=== PATIENT | female | born 1975 | race Hispanic/Latino ===

== ENCOUNTER 2016-11-30 23:01 | Emergency (ER) | payer SELFPAY ==
[2016-11-30 23:20] VITALS: BP 128/71; PULSE 81; RESP 16; TEMP 98; O2SAT 98
[2016-11-30] MEDS ORDERED: Albuterol-Ipratrop 3 mg / 0.5 (3 ml) UD INH STA (23:31)
[2016-11-30] MEDS ORDERED: Promethazine/Cod 6.25mg-10mg/5ml Syr UD PO STA (23:35)
[2016-11-30] MEDS ORDERED: Promethazine/Cod 6.25mg-10mg/5ml Syr UD ONE (23:38)
--- NOTE | 2016-12-01 | ED PDOC ---
HPI: CCC, URI, Sore Throat Time Seen by Provider: 11/30/16 23:27 Chief Complaint (Nursing): Cough, Cold, Congestion Past Medical History Vital Signs: Last Vital Signs Temp 98.0 F 11/30/16 23:17 Pulse 81 11/30/16 23:17 Resp 16 11/30/16 23:17 BP 128/71 11/30/16 23:17 Pulse Ox 98 11/30/16 23:17 - Home Medications Home Medications: Ambulatory Orders Medication Instructions Recorded Albuterol 0.083% [Albuterol 0.083% 2.5 mg IH QID PRN #20 11/30/16 Inhal Sunita (2.5 mg/3 ml) UD] Albuterol HFA [Ventolin HFA 90 1 puff IH BID PRN #1 unit 11/30/16 mcg/actuation (8 g)] Promethazine HCl/Codeine 10 ml PO Q8H PRN #150 ml 11/30/16 [Prometh-Codein 6.25-10 mg/5 ml] predniSONE [predniSONE Tab] 20 mg PO DAILY #12 tab 11/30/16 - Allergies Allergies/Adverse Reactions: Allergies Allergy/AdvReac Type Severity Reaction Status Date / Time No Known Allergies Allergy Verified 11/30/16 23:20 - ECG O2 Sat by Pulse Oximetry: 98 Disposition - Clinical Impression Clinical Impression: Viral illness, Reactive airway disease - Patient ED Disposition Is Patient to be Admitted: No Counseled Patient/Family Regarding: Diagnosis, Need For Followup, Rx Given - Disposition Disposition: Routine/Home Disposition Time: 23:58 Condition: GOOD Prescriptions: Albuterol 0.083% [Albuterol 0.083% Inhal Sunita (2.5 mg/3 ml) UD] 2.5 mg IH QID PRN #20 PRN Reason: Shortness Of Breath Promethazine HCl/Codeine [Prometh-Codein 6.25-10 mg/5 ml] 10 ml PO Q8H PRN #150 ml PRN Reason: Cough Albuterol HFA [Ventolin HFA 90 mcg/actuation (8 g)] 1 puff IH BID PRN #1 unit PRN Reason: Shortness Of Breath predniSONE [predniSONE Tab] 20 mg PO DAILY #12 tab Instructions: Reactive Airways Disease (ED)
== END 2016-12-01 00:16 | disposition home or self-care (01) ==
LOC: H.ER 23:01
DX: J45.909 Unspecified asthma, uncomplicated (principal)

== ENCOUNTER 2018-04-14 15:17 | Emergency (ER) | payer SELFPAY ==
[2018-04-14 15:28] VITALS: TEMP 98.3
[2018-04-14 15:38] VITALS: RESP 18
[2018-04-14] MEDS ORDERED: Albuterol-Ipratrop 3 mg / 0.5 (3 ml) UD INH STA (16:02)
--- NOTE | 2018-04-14 16:18 | ED PDOC ---
HPI: SOB/CHF/COPD Time Seen by Provider: 04/14/18 15:36 Chief Complaint (Nursing): Shortness Of Breath Chief Complaint (Provider): Cough and Asthma History Per: Patient History/Exam Limitations: no limitations Onset/Duration Of Symptoms: Hrs (x6) Current Symptoms Are (Timing): Still Present Additional Complaint(s): 42 year old female, with a past medical history of asthma, presents to the ED complaining of cough and asthma. Patient reports having chest tightness and dry cough for the last 6 hours consistent with previous episodes of asthma attack. She tried to ignore symptoms but there was no improvement. She states her albuterol pump does not work. PMD: Piotr Samayoa Past Medical History Reviewed: Historical Data, Nursing Documentation, Vital Signs Vital Signs: Last Vital Signs Temp 98.3 F 04/14/18 15:24 Pulse 91 H 04/14/18 16:26 Resp 18 04/14/18 15:35 BP 128/80 04/14/18 15:24 Pulse Ox 96 04/14/18 16:26 - Medical History PMH: Asthma - Family History Family History: States: Unknown Family Hx - Social History Current smoker - smoking cessation education provided: Yes Alcohol: Social Drugs: Denies - Home Medications Home Medications: Ambulatory Orders Medication Instructions Recorded Albuterol 0.083% [Albuterol 0.083% 2.5 mg IH QID PRN #20 11/30/16 Inhal Sunita (2.5 mg/3 ml) UD] Albuterol HFA [Ventolin HFA 90 1 puff IH BID PRN #1 unit 11/30/16 mcg/actuation (8 g)] Promethazine HCl/Codeine 10 ml PO Q8H PRN #150 ml 11/30/16 [Prometh-Codein 6.25-10 mg/5 ml] predniSONE [predniSONE Tab] 20 mg PO DAILY #12 tab 11/30/16 Albuterol 0.083% [Albuterol 3 ml IH Q4 PRN #50 neb 04/14/18 Sulfate 3 Ml] Albuterol HFA [Ventolin HFA 90 2 puff IH Q4H PRN #1 inh 04/14/18 mcg/actuation (8 g)] Nebulizer [Aeroneb Go Nebuliser] 1 each INH PRN PRN #1 each 04/14/18 - Allergies Allergies/Adverse Reactions: Allergies Allergy/AdvReac Type Severity Reaction Status Date / Time No Known Allergies Allergy Verified 04/14/18 15:23 Review of Systems ROS Statement: Except As Marked, All Systems Reviewed And Found Negative (as per HPI) Cardiovascular: Positive for: Chest Pain, Other (Chest tightness) Respiratory: Positive for: Cough Physical Exam - Reviewed Nursing Documentation Reviewed: Yes Vital Signs Reviewed: Yes - Physical Exam Appears: Positive for: Non-toxic, No Acute Distress Head Exam: Positive for: ATRAUMATIC, NORMOCEPHALIC Skin: Positive for: Warm, Dry Eye Exam: Positive for: EOMI, PERRL ENT: Positive for: Pharynx Is (erythematous), Other (Petechiae on posterior soft palate). Negative for: Tonsillar Exudate, Tonsillar Swelling Neck: Positive for: Painless ROM, Supple Cardiovascular/Chest: Positive for: Regular Rate, Rhythm. Negative for: Murmur Respiratory: Positive for: Respiratory Distress (mild), Other (Clear to auscultation bilaterally). Negative for: Rales, Rhonchi, Wheezing Gastrointestinal/Abdominal: Positive for: Soft. Negative for: Tenderness Back: Positive for: Normal Inspection. Negative for: Decreased ROM Extremity: Positive for: Normal ROM. Negative for: Pedal Edema Lymphatic: Negative for: Adenopathy Neurologic/Psych: Positive for: Alert. Negative for: Motor/Sensory Deficits - ECG ECG Rhythm: Positive for: Sinus Rhythm. Negative for: Normal QRS (narrow), ST/ T Changes Interpretation Of ECG: Poor R wave progression Rate: 91 O2 Sat by Pulse Oximetry: 96 (RA) Pulse Ox Interpretation: Normal Medical Decision Making Medical Decision Making: Initial Impression: Chest tightness, asthma exacerbation Differentials include but not limited to bronchitis. Initial Plan: Albuterol 6mL INH Peak flow 450p Pt reports feeling better. Stable for dc. Scribe Attestation: Documented by Bean Kincaid acting as a scribe for Arleth Sanderson MD. Provider Scribe Attestation: All medical record entries made by the Scribe were at my direction and personally dictated by me. I have reviewed the chart and agree that the record accurately reflects my personal performance of the history, physical exam, medical decision making, and the department course for this patient. I have also personally directed, reviewed, and agree with the discharge instructions and disposition. Disposition - Clinical Impression Clinical Impression: Asthma exacerbation Counseled Patient/Family Regarding: Studies Performed, Diagnosis, Need For Followup, Rx Given, Smoking Cessation - Disposition Referrals: [facility] [place] [Outside] (FOLLOW UP NEXT WEEK FOR REEVALUATION) Disposition: Routine/Home Disposition Time: 16:45 Condition: IMPROVED Prescriptions: Albuterol 0.083% [Albuterol Sulfate 3 Ml] 3 ml IH Q4 PRN #50 neb PRN Reason: asthma Albuterol HFA [Ventolin HFA 90 mcg/actuation (8 g)] 2 puff IH Q4H PRN #1 inh PRN Reason: ASTHMA Nebulizer [Aeroneb Go Nebuliser] 1 each INH PRN PRN #1 each PRN Reason: asthma Instructions: Asthma, Adult (DC), Quitting Smoking Forms: [facility] ED School/Work Excuse
[2018-04-14 17:11] VITALS: BP 126/77; PULSE 85; O2SAT 97
== END 2018-04-14 17:05 | disposition home or self-care (01) ==
LOC: H.ER 15:17
DX: J45.901 Unspecified asthma with (acute) exacerbation (principal); F17.200 Nicotine dependence, unspecified, uncomplicated; J44.9 Chronic obstructive pulmonary disease, unspecified

== ENCOUNTER 2018-04-21 13:45 | Emergency (ER) | payer SELFPAY ==
[2018-04-21 13:57] VITALS: BP 124/74; PULSE 76; TEMP 98.4; O2SAT 100
[2018-04-21] MEDS ORDERED: Albuterol-Ipratrop 3 mg / 0.5 (3 ml) UD INH STA (14:18)
[2018-04-21] MEDS ORDERED: methylPREDNISolone 125 MG in Sodium Chloride 0.9% 50 ML IV STA (14:18)
[2018-04-21 14:22] VITALS: RESP 16
[2018-04-21] MEDS ORDERED: Albuterol-Ipratrop 3 mg / 0.5 (3 ml) UD ONE (14:26)
--- NOTE | 2018-04-21 15:07 | ED PDOC ---
HPI: SOB/CHF/COPD Time Seen by Provider: 04/21/18 14:08 Chief Complaint (Nursing): Shortness Of Breath Chief Complaint (Provider): Shortness of breath History Per: Patient History/Exam Limitations: no limitations Onset/Duration Of Symptoms: Hrs (today) Current Symptoms Are (Timing): Still Present Initiating Event: Upper Respiratory Illness Associated Symptoms: Productive Cough. denies: Fever, Chills, Chest Pain, Ankle /Leg Swelling Additional Complaint(s): Neris Melendez is a 42 year old female, with a past medical history of asthma , who presents to the emergency department complaining of cough and shortness of breath onset since this morning stating it's an acute asthma exacerbation. Patient was seen x1 week ago for the same symptoms which had resolved but came back this morning. Patient denies previous hospitalizations for asthma or intubations. She denies any fever, chills, nausea, vomit, diarrhea, leg swelling , calf pain, chest pain or other illnesses. No further medical complaints. PMD: None provided. Past Medical History Reviewed: Historical Data, Nursing Documentation, Vital Signs Vital Signs: Last Vital Signs Temp 98.4 F 04/21/18 13:55 Pulse 76 04/21/18 13:55 Resp 16 04/21/18 14:20 BP 124/74 04/21/18 13:55 Pulse Ox 100 04/21/18 15:45 - Medical History PMH: Asthma - Surgical History Surgical History: No Surg Hx - Family History Family History: States: Unknown Family Hx - Social History Current smoker - smoking cessation education provided: Yes (Current some days smoker) Alcohol: Social Drugs: Denies - Home Medications Home Medications: Ambulatory Orders Medication Instructions Recorded Albuterol 0.083% [Albuterol 0.083% 2.5 mg IH QID PRN #20 11/30/16 Inhal Sunita (2.5 mg/3 ml) UD] Albuterol HFA [Ventolin HFA 90 1 puff IH BID PRN #1 unit 11/30/16 mcg/actuation (8 g)] Promethazine HCl/Codeine 10 ml PO Q8H PRN #150 ml 11/30/16 [Prometh-Codein 6.25-10 mg/5 ml] predniSONE [predniSONE Tab] 20 mg PO DAILY #12 tab 11/30/16 Albuterol 0.083% [Albuterol 3 ml IH Q4 PRN #50 neb 04/14/18 Sulfate 3 Ml] Albuterol HFA [Ventolin HFA 90 2 puff IH Q4H PRN #1 inh 04/14/18 mcg/actuation (8 g)] Nebulizer [Aeroneb Go Nebuliser] 1 each INH PRN PRN #1 each 04/14/18 Albuterol HFA [Ventolin HFA 90 2 puff IH [id number] #1 inhaler 04/21/18 mcg/actuation (8 g)] Prednisone [Deltasone] 40 mg PO DAILY #8 tablet 04/21/18 - Allergies Allergies/Adverse Reactions: Allergies Allergy/AdvReac Type Severity Reaction Status Date / Time No Known Allergies Allergy Verified 04/21/18 13:55 Review of Systems ROS Statement: Except As Marked, All Systems Reviewed And Found Negative Constitutional: Negative for: Fever, Chills Cardiovascular: Negative for: Chest Pain, Edema Respiratory: Positive for: Cough, Shortness of Breath Gastrointestinal: Negative for: Nausea, Vomiting, Diarrhea Musculoskeletal: Negative for: Leg Pain (calf pain) Physical Exam - Reviewed Nursing Documentation Reviewed: Yes Vital Signs Reviewed: Yes - Physical Exam Appears: Positive for: No Acute Distress Head Exam: Positive for: ATRAUMATIC, NORMAL INSPECTION, NORMOCEPHALIC Skin: Positive for: Normal Color, Warm, Dry Eye Exam: Positive for: Normal appearance, EOMI, PERRL Neck: Positive for: Painless ROM, Supple Cardiovascular/Chest: Positive for: Regular Rate, Rhythm. Negative for: Murmur Respiratory: Positive for: Normal Breath Sounds, Wheezing (decreased air entry with faint expiratory wheeze), Other. Negative for: Respiratory Distress Gastrointestinal/Abdominal: Positive for: Normal Exam, Soft. Negative for: Tenderness Back: Positive for: Normal Inspection. Negative for: L CVA Tenderness, R CVA Tenderness Extremity: Positive for: Normal ROM (upper and lower extremities). Negative for : Calf Tenderness, Deformity, Swelling Neurologic/Psych: Positive for: Alert, Oriented. Negative for: Motor/Sensory Deficits - ECG O2 Sat by Pulse Oximetry: 100 (RA) Pulse Ox Interpretation: Normal Medical Decision Making Medical Decision Making: Time: 14:08 Initial Impression: Asthma exacerbation. Possible x-rays and labs if symptoms not resolved with treatment and reevaluate patient. Initial Plan: --Kevinb 3 ml INH --SOLU-medrol 125 mg IV --Reevaluation 15:40 -Patient states asthma resolved. Patient is medically stable for discharge home. Pt. is requesting note for work and prescription for albuterol and Prednisone. ----- Scribe Attestation: Documented by Memo Loene, acting as a scribe for Estella Conley MD. Provider Scribe Attestation: All medical record entries made by the Scribe were at my direction and personally dictated by me. I have reviewed the chart and agree that the record accurately reflects my personal performance of the history, physical exam, medical decision making, and the department course for this patient. I have also personally directed, reviewed, and agree with the discharge instructions and disposition. Disposition - Clinical Impression Clinical Impression: Asthma exacerbation - Disposition Disposition: Routine/Home Disposition Time: 15:40 Condition: IMPROVED Additional Instructions: Take albuterol as needed. Take Prednisone starting tomorrow and for a total of four days. Return to the emergency department if symptoms worsen. Follow up with primary medical doctor for routine asthma management. Prescriptions: Albuterol HFA [Ventolin HFA 90 mcg/actuation (8 g)] 2 puff IH [id number] #1 inhaler Prednisone [Deltasone] 40 mg PO DAILY #8 tablet Instructions: Asthma, Adult (DC), Asthma Action Plan, Peak Flow Meter Forms: [employer] ([place]), [facility] ED School/Work Excuse
== END 2018-04-21 16:00 | disposition home or self-care (01) ==
LOC: H.ER 13:45
DX: J45.901 Unspecified asthma with (acute) exacerbation (principal); F17.200 Nicotine dependence, unspecified, uncomplicated
CPT/HCPCS: 94150; 94640; 99283; J2930

== ENCOUNTER 2018-05-15 21:34 | Emergency (ER) | payer SELFPAY ==
[2018-05-15 21:43] VITALS: RESP 18
[2018-05-15] MEDS ORDERED: Albuterol-Ipratrop 3 mg / 0.5 (3 ml) UD IH STA (22:05)
--- NOTE | 2018-05-15 22:13 | ED PDOC ---
HPI: CCC, URI, Sore Throat Time Seen by Provider: 05/15/18 22:00 Chief Complaint (Nursing): Respiratory Distress Chief Complaint (Provider): cough History Per: Patient History/Exam Limitations: no limitations Onset/Duration Of Symptoms: Days (1 month), Waxing/Waning Current Symptoms Are (Timing): Still Present Associated Symptoms: Cough Additional Complaint(s): 43 y/o female presents for evaluation of persistent cough x 1 month. Patient reports associated chest tightness. Denies fever, nasal congestion/discharge, vomiting, shortness of breath, palpitations, leg pain/swelling, recent travel. Patient states she has been seen here multiple times for same but symptoms always return; has not yet followed up with her primary doctor PMD: Dr. Piotr Mejia Past Medical History Reviewed: Historical Data, Nursing Documentation, Vital Signs Vital Signs: Last Vital Signs Temp 98.8 F 05/15/18 21:39 Pulse 86 05/15/18 21:39 Resp 18 05/15/18 22:10 BP 118/78 05/15/18 21:39 Pulse Ox 98 05/15/18 23:03 - Medical History PMH: Asthma - Surgical History Surgical History: No Surg Hx - Family History Family History: States: Unknown Family Hx - Living Arrangements Living Arrangements: With Family - Social History Current smoker - smoking cessation education provided: Yes Alcohol: None - Home Medications Home Medications: Ambulatory Orders Medication Instructions Recorded Albuterol 0.083% [Albuterol 0.083% 2.5 mg IH QID PRN #20 11/30/16 Inhal Sunita (2.5 mg/3 ml) UD] Albuterol HFA [Ventolin HFA 90 1 puff IH BID PRN #1 unit 11/30/16 mcg/actuation (8 g)] Promethazine HCl/Codeine 10 ml PO Q8H PRN #150 ml 11/30/16 [Prometh-Codein 6.25-10 mg/5 ml] predniSONE [predniSONE Tab] 20 mg PO DAILY #12 tab 11/30/16 Albuterol 0.083% [Albuterol 3 ml IH Q4 PRN #50 neb 04/14/18 Sulfate 3 Ml] Albuterol HFA [Ventolin HFA 90 2 puff IH Q4H PRN #1 inh 04/14/18 mcg/actuation (8 g)] Nebulizer [Aeroneb Go Nebuliser] 1 each INH PRN PRN #1 each 04/14/18 Albuterol HFA [Ventolin HFA 90 2 puff IH [id number] #1 inhaler 04/21/18 mcg/actuation (8 g)] Prednisone [Deltasone] 40 mg PO DAILY #8 tablet 04/21/18 Promethazine HCl/Codeine 5 ml PO Q8 PRN #75 ml 05/15/18 [Prometh-Codein 6.25-10 mg/5 ml] predniSONE [Prednisone] 60 mg PO DAILY #12 tab 05/15/18 - Allergies Allergies/Adverse Reactions: Allergies Allergy/AdvReac Type Severity Reaction Status Date / Time No Known Allergies Allergy Verified 05/15/18 21:38 Review of Systems ROS Statement: Except As Marked, All Systems Reviewed And Found Negative Cardiovascular: Positive for: Chest Pain Respiratory: Positive for: Cough Physical Exam - Reviewed Nursing Documentation Reviewed: Yes Vital Signs Reviewed: Yes - Physical Exam Appears: Positive for: Well, Non-toxic, No Acute Distress Head Exam: Positive for: ATRAUMATIC, NORMAL INSPECTION, NORMOCEPHALIC Skin: Positive for: Normal Color Eye Exam: Positive for: Normal appearance ENT: Positive for: Normal ENT Inspection Cardiovascular/Chest: Positive for: Regular Rate, Rhythm Respiratory: Positive for: Wheezing (mild expiratory wheezing) Gastrointestinal/Abdominal: Positive for: Normal Exam Back: Positive for: Normal Inspection Extremity: Positive for: Normal ROM Neurologic/Psych: Positive for: Alert, Oriented (x3) - Laboratory Results Result Diagrams: 05/15/18 22:15 05/15/18 22:15 - ECG ECG: Positive for: Viewed By Me (reviewed by ED attending) ECG Rhythm: Positive for: Sinus Rhythm O2 Sat by Pulse Oximetry: 98 - Radiology X-Ray: Viewed By Me X-Ray Interpretation: No Acute Disease - Progress ED Course And Treament: labs, ekg, chest xray On re-eval, patient states she is feeling better Patient educated on findings, discharged with rx Prednisone, Promethazine with codeine Advised follow up PMD 2-3 days Return precautions given Disposition - Clinical Impression Clinical Impression: Asthmatic bronchitis - Patient ED Disposition Is Patient to be Admitted: No Counseled Patient/Family Regarding: Studies Performed, Diagnosis, Need For Followup, Rx Given - Disposition Referrals: Piotr Mejia MD [Staff Provider] - Disposition: Routine/Home Disposition Time: 23:03 Condition: IMPROVED Prescriptions: predniSONE [Prednisone] 60 mg PO DAILY #12 tab Promethazine HCl/Codeine [Prometh-Codein 6.25-10 mg/5 ml] 5 ml PO Q8 PRN #75 ml PRN Reason: Cough Instructions: Acute Bronchitis, Asthma in Adults Forms: [facility] (Nepalese)
[2018-05-15] MEDS ORDERED: Albuterol-Ipratrop 3 mg / 0.5 (3 ml) UD ONE (22:18)
[2018-05-15 22:32] LABS: BASO # 0.1 K/uL (0.0-0.2); BASO % 0.7 % (0.0-2.0); EOS # 0.6 K/uL (0.0-0.7); EOS % 7.8 % (0.0-4.0); LYMPH # 1.8 K/uL (1.0-4.3); LYMPH % 24.1 % (20.0-40.0); MEAN CELL VOLUME 92.9 fl (81.0-99.0); MEAN CORPUSCULAR HEMOGLOBIN 31.9 pg (27.0-31.0); MEAN CORPUSCULAR HGB CONC 34.3 g/dL (33.0-37.0); MEAN PLATELET VOLUME 7.3 fl (7.2-11.7); MONO # 0.6 K/uL (0.0-0.8); MONO % 8.1 % (0.0-10.0); NEUT # 4.4 K/uL (1.8-7.0); NEUT % 59.3 % (50.0-75.0); RBC 4.4 Mil/uL (3.80-5.20); RED CELL DISTRIBUTION WIDTH 13.3 % (11.5-14.5); WHITE BLOOD COUNT 7.5 K/uL (4.8-10.8)
[2018-05-15 22:42] LABS: ALB/GLOB RATIO 1.2 (1.0-2.1); ALBUMIN 3.9 g/dL (3.5-5.0); ALT/SGPT 31 U/L (9-52); AST/SGOT 21 U/L (14-36); BLOOD UREA NITROGEN 13 mg/dl (7-17); CALCIUM 9.7 mg/dL (8.4-10.2); GFR NON-AFRICAN AMERICAN > 60
[2018-05-15 23:29] VITALS: BP 124/79; PULSE 80; TEMP 98.4; O2SAT 99
--- NOTE | 2018-05-16 07:48 | CARD ---
APPROVED REPORT Date of service: 05/15/2018 EKG Measurement Heart [id number] <Conclusion> Normal sinus rhythm Normal ECG
--- NOTE | 2018-05-16 10:09 | RAD ---
Date of service: 05/15/2018 HISTORY: cough COMPARISON: Chest radiographs 05/11/2018. TECHNIQUE: Chest PA and lateral FINDINGS: LUNGS: No active pulmonary disease. PLEURA: No significant pleural effusion identified. No pneumothorax apparent. CARDIOVASCULAR: Normal. OSSEOUS STRUCTURES: No significant abnormalities. VISUALIZED UPPER ABDOMEN: Normal. OTHER FINDINGS: None. IMPRESSION: No interval acute cardiopulmonary disease appreciated.
== END 2018-05-15 23:29 | disposition home or self-care (01) ==
LOC: H.ER 21:34
DX: J45.901 Unspecified asthma with (acute) exacerbation (principal)
CPT/HCPCS: 71046; 80053; 81025; 84484; 85025; 93005; 94150; 94640; 96374; 96375; 99285; J1885; J2930

== ENCOUNTER 2018-09-09 13:42 | Emergency (ER) | payer MEDICAID, OTHER ==
[2018-09-09 13:51] VITALS: TEMP 98.6
[2018-09-09] MEDS ORDERED: Albuterol-Ipratrop 3 mg / 0.5 (3 ml) UD INH STA (14:38)
[2018-09-09] MEDS ORDERED: Albuterol-Ipratrop 3 mg / 0.5 (3 ml) UD IH STA (14:39)
[2018-09-09] MEDS ORDERED: Albuterol-Ipratrop 3 mg / 0.5 (3 ml) UD ONE (14:50)
--- NOTE | 2018-09-09 15:26 | RAD ---
Date of service: 09/09/2018 HISTORY: dyspnea COMPARISON: Chest radiograph dated 05/15/2018. TECHNIQUE: Chest PA and lateral FINDINGS: LUNGS: No active pulmonary disease. PLEURA: No significant pleural effusion identified. No pneumothorax apparent. CARDIOVASCULAR: No aortic atherosclerotic calcification present. Normal cardiac size. No pulmonary vascular congestion. OSSEOUS STRUCTURES: No significant abnormalities. VISUALIZED UPPER ABDOMEN: Normal. OTHER FINDINGS: None. IMPRESSION: No active disease.
--- NOTE | 2018-09-09 15:43 | ED PDOC ---
HPI: SOB/CHF/COPD Time Seen by Provider: 09/09/18 14:06 Chief Complaint (Nursing): Shortness Of Breath Chief Complaint (Provider): shortness of breath History Per: Patient History/Exam Limitations: no limitations Onset/Duration Of Symptoms: Days (x2-3 weeks) Current Symptoms Are (Timing): Still Present Quality: Tightness Associated Symptoms: denies: Fever, Chills Additional Complaint(s): Neris Melendez is a 43 year old female, with a past medical history of asthma, who presents to the emergency department complaining of shortness of breath associated with chest tightness and cough onset for x2-3 weeks. Patient states symptoms feels similar to previous episodes of asthma. She has been taking nebulizer at home with no improvement of symptoms. Patient also reports a post- tussive emesis but denies any fever, chills, nausea, vomit, diarrhea, abdominal pain, chest pain, headache, dizziness, numbness or tingling, weakness or other medical complaints. PMD: None provided. Past Medical History Reviewed: Historical Data, Nursing Documentation, Vital Signs Vital Signs: Last Vital Signs Temp 98.6 F 09/09/18 13:46 Pulse 81 09/09/18 13:46 Resp 19 09/09/18 13:46 BP 104/65 09/09/18 13:46 Pulse Ox 94 L 09/09/18 13:46 - Medical History PMH: Asthma - Surgical History Surgical History: No Surg Hx - Family History Family History: States: Unknown Family Hx - Social History Current smoker - smoking cessation education provided: Yes (Current some days smoker) Alcohol: Social Drugs: Denies - Home Medications Home Medications: Ambulatory Orders Medication Instructions Recorded Albuterol 0.083% [Albuterol 0.083% 2.5 mg IH QID PRN #20 11/30/16 Inhal Sunita (2.5 mg/3 ml) UD] Albuterol HFA [Ventolin HFA 90 1 puff IH BID PRN #1 unit 11/30/16 mcg/actuation (8 g)] Promethazine HCl/Codeine 10 ml PO Q8H PRN #150 ml 11/30/16 [Prometh-Codein 6.25-10 mg/5 ml] predniSONE [predniSONE Tab] 20 mg PO DAILY #12 tab 11/30/16 Albuterol 0.083% [Albuterol 3 ml IH Q4 PRN #50 neb 04/14/18 Sulfate 3 Ml] Albuterol HFA [Ventolin HFA 90 2 puff IH Q4H PRN #1 inh 04/14/18 mcg/actuation (8 g)] Nebulizer [Aeroneb Go Nebuliser] 1 each INH PRN PRN #1 each 04/14/18 Albuterol HFA [Ventolin HFA 90 2 puff IH [id number] #1 inhaler 04/21/18 mcg/actuation (8 g)] Prednisone [Deltasone] 40 mg PO DAILY #8 tablet 04/21/18 Albuterol 0.083% [Albuterol 1 vial IH Q6 PRN #30 vial 05/15/18 Sulfate 3 Ml] Mask, Face [Nebulizer Aerosol Mask 1 dev INH PRN PRN #1 dev 05/15/18 Adult] Nebulizer [Compact Compressor 1 dev XX Q6 PRN #1 dev 05/15/18 Nebulizer] Promethazine HCl/Codeine 5 ml PO Q8 PRN #75 ml 05/15/18 [Prometh-Codein 6.25-10 mg/5 ml] predniSONE [Prednisone] 60 mg PO DAILY #12 tab 05/15/18 Albuterol Sulfate [Proair Hfa] 0.09 mg IH Q6H PRN #2 inh 09/09/18 predniSONE [predniSONE Tab] 20 mg PO BID 5 Days tab 09/09/18 - Allergies Allergies/Adverse Reactions: Allergies Allergy/AdvReac Type Severity Reaction Status Date / Time No Known Allergies Allergy Verified 09/09/18 13:50 Review of Systems ROS Statement: Except As Marked, All Systems Reviewed And Found Negative Constitutional: Negative for: Fever, Chills Cardiovascular: Negative for: Chest Pain Respiratory: Positive for: Cough, Shortness of Breath, Other (chest tightness) Gastrointestinal: Negative for: Nausea, Vomiting, Abdominal Pain, Diarrhea Neurological: Negative for: Weakness, Numbness (tingling), Headache, Dizziness Physical Exam - Reviewed Nursing Documentation Reviewed: Yes Vital Signs Reviewed: Yes - Physical Exam Appears: Positive for: No Acute Distress Head Exam: Positive for: ATRAUMATIC, NORMAL INSPECTION, NORMOCEPHALIC Skin: Positive for: Normal Color, Warm, Dry Eye Exam: Positive for: Normal appearance, EOMI, PERRL ENT: Positive for: Normal ENT Inspection. Negative for: Pharyngeal Erythema, Tonsillar Exudate, Tonsillar Swelling Neck: Positive for: Normal, Painless ROM, Supple Cardiovascular/Chest: Positive for: Regular Rate, Rhythm. Negative for: Edema, Murmur Respiratory: Positive for: Wheezing (diffused expiratory). Negative for: Respiratory Distress Gastrointestinal/Abdominal: Positive for: Normal Exam, Soft. Negative for: Tenderness, Guarding, Rebound Back: Positive for: Normal Inspection. Negative for: L CVA Tenderness, R CVA Tenderness, Vertebral Tenderness Extremity: Positive for: Normal ROM (upper and lower extremities). Negative for: Tenderness, Calf Tenderness, Deformity, Swelling Neurologic/Psych: Positive for: Alert, Oriented. Negative for: Motor/Sensory Deficits - ECG ECG: Positive for: Interpreted By Me, Viewed By Me ECG Rhythm: Positive for: Normal QRS, Normal ST Segment, Sinus Rhythm O2 Sat by Pulse Oximetry: 94 (RA) Pulse Ox Interpretation: Abnormal - Radiology X-Ray: Interpreted by Me, Viewed By Me - Progress ED Course And Treament: 1600: Feels better. States steroids help her. 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 AAOx3. Oxygenation improved. Medical Decision Making Medical Decision Making: Time: 14:06 Initial Impression: asthma exacerbation Initial Plan: --EKG --CXR --Duoneb 3 m INH --Duoneb 3 ml INH --Prednione oral soln 60 mg PO --Reevaluation 15:23 CXR FINDINGS: LUNGS: No active pulmonary disease. PLEURA: No significant pleural effusion identified. No pneumothorax apparent. CARDIOVASCULAR: No aortic atherosclerotic calcification present. Normal cardiac size. No pulmonary vascular congestion. OSSEOUS STRUCTURES: No significant abnormalities. VISUALIZED UPPER ABDOMEN: Normal. OTHER FINDINGS: None. IMPRESSION: No active disease. Scribe Attestation: Documented by Memo Leone, acting as a scribe for Andre Clark MD Provider Scribe Attestation: All medical record entries made by the Scribe were at my direction and personally dictated by me. I have reviewed the chart and agree that the record accurately reflects my personal performance of the history, physical exam, medical decision making, and the department course for this patient. I have also personally directed, reviewed, and agree with the discharge instructions and disposition. Disposition - Clinical Impression Clinical Impression: Asthma exacerbation - Patient ED Disposition Is Patient to be Admitted: No Counseled Patient/Family Regarding: Studies Performed, Diagnosis, Need For Followup, Rx Given - Disposition Referrals: [facility] [place] [Outside] - 09/10/18 Disposition: Routine/Home Disposition Time: 16:01 Condition: STABLE Additional Instructions: Return if not better in 3 days. Prescriptions: Albuterol Sulfate [Proair Hfa] 0.09 mg IH Q6H PRN #2 inh PRN Reason: Wheezing predniSONE [predniSONE Tab] 20 mg PO BID 5 Days tab Instructions: Asthma in Adults Forms: [facility] (Gu[place]ian), [facility] ED School/Work Excuse
[2018-09-09 16:46] VITALS: BP 110/68; PULSE 78; RESP 18; O2SAT 98
--- NOTE | 2018-09-10 09:26 | CARD ---
APPROVED REPORT Date of service: 09/09/2018 EKG Measurement Heart [id number] <Conclusion> Normal sinus rhythm with sinus arrhythmia Normal ECG
== END 2018-09-09 16:42 | disposition home or self-care (01) ==
LOC: H.ER 13:42
DX: J45.901 Unspecified asthma with (acute) exacerbation (principal); F17.200 Nicotine dependence, unspecified, uncomplicated; J44.9 Chronic obstructive pulmonary disease, unspecified; Z79.899 Other long term (current) drug therapy; J45.909 Unspecified asthma, uncomplicated

== ENCOUNTER 2018-09-17 19:28 | Emergency (ER) | payer MEDICAID ==
[2018-09-17 19:41] VITALS: BP 142/95; TEMP 98.3
--- NOTE | 2018-09-17 20:42 | ED PDOC ---
HPI: SOB/CHF/COPD Time Seen by Provider: 09/17/18 20:12 Chief Complaint (Nursing): Shortness Of Breath Chief Complaint (Provider): shortness of breath History Per: Patient History/Exam Limitations: no limitations Onset/Duration Of Symptoms: Days, Waxing/Waning Current Symptoms Are (Timing): Still Present Additional Complaint(s): 43 y/o female history of asthma presents for evaluation of shortness of breath. Associated nonproductive cough. Patient has been using inhaler and nebulizer for symptoms but does not like it because it makes her very "jittery". Patient states she been seen here multiple times for same and symptoms keep returning. Patient has not been able to follow up with a primary doctor due to insurance issues. Denies fever, chest pain, palpitations, leg pain/swelling, recent travel, sick contacts. Past Medical History Reviewed: Historical Data, Nursing Documentation, Vital Signs Vital Signs: Last Vital Signs Temp 98.3 F 09/17/18 19:38 Pulse 122 H 09/17/18 19:38 Resp 28 H 09/17/18 19:38 BP 142/95 H 09/17/18 19:38 Pulse Ox 96 09/17/18 19:38 - Medical History PMH: Asthma - Surgical History Surgical History: No Surg Hx - Family History Family History: States: Unknown Family Hx - Home Medications Home Medications: Ambulatory Orders Medication Instructions Recorded Albuterol 0.083% [Albuterol 0.083% 2.5 mg IH QID PRN #20 11/30/16 Inhal Sunita (2.5 mg/3 ml) UD] Albuterol HFA [Ventolin HFA 90 1 puff IH BID PRN #1 unit 11/30/16 mcg/actuation (8 g)] Promethazine HCl/Codeine 10 ml PO Q8H PRN #150 ml 11/30/16 [Prometh-Codein 6.25-10 mg/5 ml] predniSONE [predniSONE Tab] 20 mg PO DAILY #12 tab 11/30/16 Albuterol 0.083% [Albuterol 3 ml IH Q4 PRN #50 neb 04/14/18 Sulfate 3 Ml] Albuterol HFA [Ventolin HFA 90 2 puff IH Q4H PRN #1 inh 04/14/18 mcg/actuation (8 g)] Nebulizer [Aeroneb Go Nebuliser] 1 each INH PRN PRN #1 each 04/14/18 Albuterol HFA [Ventolin HFA 90 2 puff IH [id number] #1 inhaler 04/21/18 mcg/actuation (8 g)] Prednisone [Deltasone] 40 mg PO DAILY #8 tablet 04/21/18 Albuterol 0.083% [Albuterol 1 vial IH Q6 PRN #30 vial 05/15/18 Sulfate 3 Ml] Mask, Face [Nebulizer Aerosol Mask 1 dev INH PRN PRN #1 dev 05/15/18 Adult] Nebulizer [Compact Compressor 1 dev XX Q6 PRN #1 dev 05/15/18 Nebulizer] Promethazine HCl/Codeine 5 ml PO Q8 PRN #75 ml 05/15/18 [Prometh-Codein 6.25-10 mg/5 ml] predniSONE [Prednisone] 60 mg PO DAILY #12 tab 05/15/18 Albuterol Sulfate [Proair Hfa] 0.09 mg IH Q6H PRN #2 inh 09/09/18 Benzonatate [Tessalon Perles] 100 mg PO BID PRN 5 Days sgl 09/09/18 predniSONE [predniSONE Tab] 20 mg PO BID 5 Days tab 09/09/18 predniSONE [predniSONE Tab] 10 mg PO ASDIR #26 tab 09/17/18 - Allergies Allergies/Adverse Reactions: Allergies Allergy/AdvReac Type Severity Reaction Status Date / Time No Known Allergies Allergy Verified 09/17/18 19:38 Review of Systems ROS Statement: Except As Marked, All Systems Reviewed And Found Negative Respiratory: Positive for: Cough, Shortness of Breath Physical Exam - Reviewed Nursing Documentation Reviewed: Yes Vital Signs Reviewed: Yes - Physical Exam Appears: Positive for: Well, Non-toxic, No Acute Distress Head Exam: Positive for: ATRAUMATIC, NORMAL INSPECTION, NORMOCEPHALIC Skin: Positive for: Normal Color Eye Exam: Positive for: Normal appearance ENT: Positive for: Normal ENT Inspection Cardiovascular/Chest: Positive for: Regular Rate, Rhythm Respiratory: Positive for: Decreased Breath Sounds Gastrointestinal/Abdominal: Positive for: Normal Exam Back: Positive for: Normal Inspection Extremity: Positive for: Normal ROM Neurologic/Psych: Positive for: Alert, Oriented (x3) - ECG O2 Sat by Pulse Oximetry: 96 - Progress ED Course And Treament: Patient refusing EKG and duonebs; states prednisone is really all that helps get her breathing under control. Patient given Solumedrol IM and duoneb in ED with marked improvement of symptoms Patient educated on findings, discharged with rx taper course of Prednisone. ADvised to continue nebulizer, inhaler PRN Stressed importance of follow up with a primary care physician Return precautions given Disposition - Clinical Impression Clinical Impression: Reactive airway disease - Patient ED Disposition Is Patient to be Admitted: No Counseled Patient/Family Regarding: Diagnosis, Need For Followup, Rx Given - Disposition Referrals: [facility] [Outside] Disposition: Routine/Home Disposition Time: 22:27 Condition: IMPROVED Prescriptions: RX: predniSONE [predniSONE Tab] 10 mg PO ASDIR #26 tab Instructions: Asthma in Adults Forms: [facility] (Nauruan)
[2018-09-17 21:13] VITALS: PULSE 86; RESP 18
[2018-09-17] MEDS ORDERED: Naproxen 500 MG TAB PO ONE (21:15)
[2018-09-17] MEDS ORDERED: Albuterol-Ipratrop 3 mg / 0.5 (3 ml) UD IH STA (21:54)
[2018-09-17] MEDS ORDERED: Albuterol-Ipratrop 3 mg / 0.5 (3 ml) UD ONE (21:56)
[2018-09-17 22:32] VITALS: O2SAT 99
== END 2018-09-17 22:25 | disposition home or self-care (01) ==
LOC: H.ER 19:28
DX: J44.9 Chronic obstructive pulmonary disease, unspecified (principal)
CPT/HCPCS: 81025; 94640; 96372; 99283; J2930